=== PATIENT | male | born 1955 | race Caucasian/White ===

== ENCOUNTER 2017-11-15 12:24 | Emergency (ER) | payer OTHER ==
[2017-11-15] MEDS: DEXAMETHASONE 10 MG/ML 1 ML INJ IM (15:27)
[2017-11-15] MEDS: ALBUTEROL 0.5% (NEB) 2.5 MG/0.5 ML AMP INH (15:47)
[2017-11-15] MEDS: IPRATROPIUM (NEB) 0.5 MG/2.5 ML AMP INH (15:47)
== END 2017-11-15 17:56 | disposition home or self-care (01) ==
LOC: FTE 12:24
DX: J45.901 Unspecified asthma with (acute) exacerbation (principal)
CPT/HCPCS: 71010; 94644; 96372; 99284-25

== ENCOUNTER 2017-12-30 07:47 | Emergency (ER) | payer OTHER ==
[2017-12-30] MEDS: DEXAMETHASONE 10 MG/ML 1 ML INJ IM (08:35)
[2017-12-30] MEDS: IPRATROPIUM (NEB) 0.5 MG/2.5 ML AMP HHN (08:41)
[2017-12-30] MEDS: ALBUTEROL 0.083% (NEB) 2.5 MG/3 ML AMP HHN (08:41)
== END 2017-12-30 09:35 | disposition home or self-care (01) ==
LOC: FTE 07:47
DX: J06.9 Acute upper respiratory infection, unspecified (principal); J45.901 Unspecified asthma with (acute) exacerbation
CPT/HCPCS: 94664; 96372; 99284-25

== ENCOUNTER 2018-10-30 11:37 | Emergency (ER) | payer OTHER ==
[2018-10-30] MEDS: IPRATROPIUM (NEB) 0.5 MG/2.5 ML AMP HHN (12:43)
[2018-10-30] MEDS: ALBUTEROL 0.083% (NEB) 2.5 MG/3 ML AMP HHN (12:43)
[2018-10-30] MEDS: DEXAMETHASONE 10 MG/ML 1 ML INJ IM (12:51)
== END 2018-10-30 13:40 | disposition home or self-care (01) ==
LOC: FTE 11:37
DX: J45.901 Unspecified asthma with (acute) exacerbation (principal); J30.9 Allergic rhinitis, unspecified; R40.2412 Glasgow coma scale score 13-15, at arrival to emergency department
CPT/HCPCS: 94664; 96372; 99284-25

== ENCOUNTER 2019-04-13 07:52 | Emergency (ER) | payer OTHER | END 2019-04-13 08:38 | disposition home or self-care (01) | LOC: FTE 07:52 | DX: L03.114 Cellulitis of left upper limb (principal); I10 Essential (primary) hypertension; J45.909 Unspecified asthma, uncomplicated | CPT/HCPCS: 99283; Z7502 ==

== ENCOUNTER 2019-04-14 13:02 | Emergency (ER) | payer OTHER ==
[2019-04-14] MEDS: ACETAMINOPHEN 325 MG TAB PO (15:12)
[2019-04-14] MEDS: DIPHTH/TET/ACEL PERTUSS (ADULT) 0.5 ML VIAL IM* (16:51)
== END 2019-04-14 16:56 | disposition home or self-care (01) ==
LOC: FTE 13:02
DX: S80.212A Abrasion, left knee, initial encounter (principal); J45.909 Unspecified asthma, uncomplicated; W18.39XA Other fall on same level, initial encounter; Y92.9 Unspecified place or not applicable; Z23 Encounter for immunization
CPT/HCPCS: 73562; 90471; 90715; 99283-25